=== PATIENT | female | born 1980 | race Caucasian/White ===

== ENCOUNTER 2016-07-16 06:27 | Day surgery (SDC) | payer OTHER ==
[~2016-07-16 06:27] MED LIST: CALCIUM/MAG/ZINC PO; CHANTIX1 PO; IBU800 PO; L-LYSINE500 M1 PO; LIOR10 PO; METHOC750B PO; MYRAC100 MG PO; NORCO1 TA2 PO; NORPRAMIN PO; OTC POTASSIUM; VYVANSE70 MG PO; X5 PO; YAZ1 TAB PO; ZANAFLEX 4 MG TA4 MG PO; ZYRTEC ALLGY10 MG PO
[2016-08-26] MEDS ORDERED: ADDERXR30 PO (11:41)
[2016-08-26] MEDS ORDERED: ADDERALL30 MG PO (11:43)
[2016-08-26] MEDS ORDERED: NEUR100 PO (11:45)
[2016-08-26] MEDS ORDERED: AMOXIL500C PO (11:46)
[2016-08-26] MEDS ORDERED: DSS PO (12:00)
[2016-09-02] MEDS ORDERED: ROXICODONE15 MG PO (10:06)
[2016-09-02] MEDS ORDERED: NEUR300 PO (10:06)
[2016-09-02] MEDS ORDERED: MSCONTIN PO (10:07)
[2016-09-02] MEDS ORDERED: V5 PO (10:07)
== END 2016-07-16 11:24 | disposition home or self-care (01) ==
LOC: SDC 06:27
PROVIDERS: Orthopaedic Surgery
PROC: 3E0R33Z Introduction of Anti-inflammatory into Spinal Canal, Percutaneous Approach (ICD-10-PCS; 2016-07-16)
PROC: B01BYZZ Fluoroscopy of Spinal Cord using Other Contrast (ICD-10-PCS; 2016-07-16)
PROC: 3E0R3BZ Introduction of Anesthetic Agent into Spinal Canal, Percutaneous Approach (ICD-10-PCS; principal; 2016-07-16 08:30)
DX: M54.16 Radiculopathy, lumbar region (principal); Z79.899 Other long term (current) drug therapy; Z90.89 Acquired absence of other organs; Z98.890 Other specified postprocedural states
CPT/HCPCS: 77003; 84703; J1040; J2250; J3010; Q9967